=== PATIENT | male | born 1945 | race Caucasian/White ===

== ENCOUNTER 2017-01-15 09:54 | Outpatient (CLI) | payer MEDICARE, OTHER ==
[~2017-01-15] VITALS: Ht 177.8 cm; Wt 87.6 kg
--- NOTE | ~2017-01-15 | CATH ---
Cardiac Diagnostic Report Demographics Patient Name ANUPAMA Kerns Gender Male Date of 1945 Age 71 year(s) Patient Number [id number] Date of Study 01/15/2017 Visit Number [id number] Room Number G6[address] [place] [id number] Ht 177.8 cm Wt 87.6 kg Referring Aline Gar Primary Physician Physician Chele WYATT [facility]forming [facility] Secondary Physician Marily WYATT Physician [facility] Yerra Assisting [facility] Cal[facility]xto Physician Aldo Lynch MD Interventional [facility] Physician Marily WYATT Research Rn Spec Findings and Conclusions Diagnostic Findings and Conclusion Critial 1 vs disease, + stress echo with w/o wall motion abnormality in LAD territory at peak stress. LM 10% in mid portion, ostial LAD tubular 90% stenosis, proximal Cx 30%, slow flow in RCA without any significant stenosis, CHRISTIE I flow. Diagnostic Recommendations Interventional Consult recommended. PCI LAD recommended, given worsening ROBISON (anginal equivalent, severe ostial LAD lesion as well as + stress echocardiogram). Procedure Description The patient was brought to the diagnostic cardiac catheterization-EP laboratory in the fasting, non-sedated state. Informed consent was obtained in the written and verbal form after the risks and benefits were explained. The patient had no further questions and agreed to proceed. The planned puncture-incision site(s) were shaved and prepped with ChloraPrep and draped in the usual sterile manner. Conscious sedation, supplemental oxygen, and pain control medications were delivered by a registered nurse under physician guidance. Surface ECG rhythm, blood pressure measurement, and pulse oximetry were monitored throughout the procedure. Arterial access. The access site was infiltrated with lidocaine. The vessel was entered with the Seldinger technique. A sheath was advanced into the vessel and used for catheter placement. Selective left coronary angiography. A catheter was advanced into the left coronary vessel ostium under Fluoroscopic guidance. Contrast was injected by hand. Images were obtained in multiple projections. Selective right coronary angiography. A catheter was advanced into the right coronary vessel ostium under fluoroscopic guidance. Contrast was injected by hand. Images were obtained in multiple projections. Stent Placement: A guiding catheter was used to intubate the vessel. A 0.14 wire was used to cross the lesion. A Drug Eluting Stent was placed. Post placement angiograms were performed. Arterial artery hemostasis was achieved. The patient was transferred to a regular nursing floor via cart accompanied by a nurse. The patient left the laboratory in stable condition. Diagnostic Cath Status: Elective Procedure Procedure Type Diagnostic procedure:Angiography:, Coronary Angios Indications: Abnormal cardiolyte. The procedure was explained in detail to the patient. Risks, complications and alternative treatments were reviewed. Written consent was obtained. Medications Reviewed with Patient prior to Procedure. Angiographic Findings Dominance: Right Cardiac Arteries and Lesion Findings LMCA: Abnormal.10 % mid LAD: ostial LAD 90%, mid 30% Diag ostial 70 focal Lesion on Prox LAD: Ostial.90% stenosis 12 mm length reduced to 0%. Pre procedure CHRISTIE II flow was noted. The guidewire cross was successful.A poor run off was present.The lesion was diagnosed as a high risk lesion.Culprit lesion. Lesion on Mid LAD: Mid subsection.30% stenosis . Lesion on 1st Diag: Ostial.70% stenosis . LCx: Abnormal.prox 30% focal OM wnl Lesion on Prox CX: Proximal subsection.30% stenosis . RCA: Abnormal.CHRISTIE [address] w[address] Coronary Tree Procedure Data Procedure Date Date: 01/15/2017Start: 11:38 AMEnd: 12:55 PM Entry Locations - Retrograde Percutaneous access was performed through the Right Ulnar Artery (Primary location). A 6 Fr sheath was inserted. Hemostasis was successfully obtained using Mechanical Compression. Closure Comments: 19 cc air in R Band. Procedure Medications Order and Administration + + + + + !Time !Medication !Dosage !Route ! + + + + + !01/15/2017 11:34 !Versed !1 mg !I.V. ! !AM ! ! ! ! + + + + + !01/15/2017 11:34 !Fentanyl !50 mcg !I.V. ! !AM ! ! ! ! + + + + + !01/15/2017 11:41 !Versed !1 mg !I.V. ! !AM ! ! ! ! + + + + + !01/15/2017 11:43 !Oxygen !2 l/min !NC ! !AM ! ! ! ! + + + + + !01/15/2017 12:00 !Versed !1 mg !I.V. ! !PM ! ! ! ! + + + + + !01/15/2017 12:00 !Oxygen !4 l/min !NC ! !PM ! ! ! ! + + + + + !01/15/2017 12:02 !Heparin (ACC_3) !4000 units !I.V. bolus ! !PM ! ! ! ! + + + + + !01/15/2017 12:27 !Angiomax (Bivalirudin) !67.5 mg !I.V. bolus ! !PM !(ACC_5) ! ! ! + + + + + !01/15/2017 12:28 !Angiomax (Bivalirudin) !1.75 mg/kg/hr!I.V. bolus ! !PM !(ACC_5) ! ! ! + + + + + 01/15/2017 12:31 !Fentanyl !25 mcg !I.V. ! !PM ! ! ! ! + + + + + !01/15/2017 12:31 !Aggrastat (Tirofiban) !2300 mcg !I.V. bolus ! !PM ! ! ! ! + + + + + !01/15/2017 12:39 !Versed !1 mg !I.V. ! !PM ! ! ! ! + + + + + !01/15/2017 12:46 !Brilinta (Ticagrelor) !180 mg !P.O. ! !PM !(ACC_20) ! ! ! + + + + + Devices Used - A5 Fr. BS JR 4 Diag. Catheterwas used for:Right coronary angiography. - A5 Fr. BS JL 3.5 Diag. Catheterwas used for:Left coronary angiography. - A6 Fr. EBU 3.5 Guide Catheterwas used for:LAD Intervention. Contrast Material - Isovue [id number] ml Fluoroscopy Time: Diagnostic: 11:12 minutes. Total: 11:12 minutes. Fluoroscopy Dose: Diagnostic: 1736 mGy. Total: 1736 mGy. Estimated Blood Loss: 20 ml. Additional [facility] PCI Information PCI Indication:PCI for high risk Non-STEMI or unstable angina. Medical History Performed Procedures and Imaging Results - Stress echocardiogramwas performed. Results were: Positive. Risk/Extent of ischemia was: Intermediate risk. Allergies - Morphine. Risk Factors The patient risk factors include:physical activity, hypertension, last creatinine: 1.3 mg/dl, creatinine clearance: 66.45 ml/min and former tobacco use. Admission Data Admission Date: 01/15/2017 Admission Time: 09:54 AM Admit Source: Other Insurance Payors: Medicare. Admission Medications + +------+------+ + + + + !Medication !Dosage!Times !Last !Last !Administered !Comments ! ! ! !Per !Delivery !Delivery ! ! ! ! ! !Day !Date !Time ! ! ! + +------+------+ + + + + !Aspirin ! ! ! ! !Yes ! ! !(any) ! ! ! ! ! ! ! + +------+------+ + + + + !Beta ! ! ! ! !Yes ! ! !Salvatore ! ! ! ! ! ! ! !(any) ! ! ! ! ! ! ! + +------+------+ + + + + !Non-Statin ! ! ! ! !Yes ! ! !(any) ! ! ! ! ! ! ! + +------+------+ + + + + Clinical Evaluation Leading to Procedure - Anti-anginal medications were prescribed during the past two weeks. The medications are: Beta Blockers and Long Acting Nitrates. - The patient's CAD presentation was assessed as: Unstable angina. - The patient's anginal syndrome during the past two weeks was assessed as: Class III according to the [place] Cardiovascular Society Classification System (CCS). Anti-anginal medications were prescribed during the past two weeks. The medications are: Beta Blockers, Long Acting Nitrates and Other. - The patient has been in a state of heart failure within the past two weeks. - The patient shows CHF symptoms of ROBISON. Snapshots Hemodynamics Condition: Rest O2 Consumption: Estimated: 224.77Heart Rate: 52 bpm Pressures (mmHg) +-----+ + !Site !Pressure ! +-----+ + !AO !134/96 (105) ! +-----+ + Shunts Oxygen Values O2 Capacity 228.48 O2 Consumption 224.77 Signatures dtt: ALDO ACOSTA dtd: 01/15/17 1138 Physician Self Edit
--- NOTE | ~2017-01-15 | CATH ---
Cardiac Interventional Report Demographics Patient Name ANUPAMA Kerns Gender Male Date of 1945 Age 71 year(s) Patient Number [id number] Date of Study 01/15/2017 Visit Number [id number] Room Number G6[address] [place] [id number] Ht 177.8 cm Wt 87.6 kg Referring Aline Gar Primary Physician Physician Chele WYATT Performing Yerra Secondary Physician Aldo Physician Emerald Calixto MD Diagnostic Yerra Assisting Emerald Calixto Physician Aldo Lynch MD Interventional Emerald Physician Physician Marily WYATT Np Findings and Conclusions Interventional Findings and Conclusion s/p PCI ostial LAD with GEOFFREY Promus Premier, 4.0 x 12 at 14 nora Interventional Recommendations Continue regular medications. Patient will be observed overnight. Hydration and followup creatinine. Patient has been instructed to not lift anything more than 5 pounds for 1 week. I will plan on seeing the patient back in 2 week(s). Aggressive risk factor management. Aggressive medical therapy for coronary artery disease. ASA. Statin. Dual Anti-platelet therapy. Cardiac diet . Optimization of medical therapy as an outpatient. Referral to Cardiac Rehabilitation now and at discharge . I would like to thank Dr. Dr. Mireles for the opportunity to participate in the care of Mr. Tate . Procedure Description The patient was brought to the diagnostic cardiac catheterization-EP laboratory in the fasting, non-sedated state. Informed consent was obtained in the written and verbal form after the risks and benefits were explained. The patient had no further questions and agreed to proceed. The planned puncture-incision site(s) were shaved and prepped with ChloraPrep and draped in the usual sterile manner. Conscious sedation, supplemental oxygen, and pain control medications were delivered by a registered nurse under physician guidance. Surface ECG rhythm, blood pressure measurement, and pulse oximetry were monitored throughout the procedure. Arterial access. The access site was infiltrated with lidocaine. The vessel was entered with the Seldinger technique. A sheath was advanced into the vessel and used for catheter placement. Selective left coronary angiography. A catheter was advanced into the left coronary vessel ostium under Fluoroscopic guidance. Contrast was injected by hand. Images were obtained in multiple projections. Selective right coronary angiography. A catheter was advanced into the right coronary vessel ostium under fluoroscopic guidance. Contrast was injected by hand. Images were obtained in multiple projections. Stent Placement: A guiding catheter was used to intubate the vessel. A 0.14 wire was used to cross the lesion. A Drug Eluting Stent was placed. Post placement angiograms were performed. Arterial artery hemostasis was achieved. The patient was transferred to a regular nursing floor via cart accompanied by a nurse. The patient left the laboratory in stable condition. Interventional Cath Status: Urgent Procedure Procedure Type PCI procedure:Drug Eluting Coronary Stent:, LAD Indications: Abnormal cardiolyte. The procedure was explained in detail to the patient. Risks, complications and alternative treatments were reviewed. Written consent was obtained. Medications Reviewed with Patient prior to Procedure. Angiographic Findings Dominance: Right Cardiac Arteries and Lesion Findings LMCA: Abnormal.10 % mid LAD: ostial LAD 90%, mid 30% Diag ostial 70 focal Lesion on Prox LAD: Ostial.90% stenosis 12 mm length reduced to 0%. Pre procedure CHRISTIE II flow was noted. Post Procedure CHRISTIE III flow was present. The guidewire cross was successful.A poor run off was present.The lesion was diagnosed as a high risk lesion.Culprit lesion. Devices used - BMW Wire .014 x 190. Number of passes: 1. - Emerge Balloon 3.0 x 8. 1 inflation(s) to a max pressure of: 10 nora. - Promus Premier 4.0 x 12 Stent. 1 inflation(s) to a max pressure of: 14 nora. Lesion on Mid LAD: Mid subsection.30% stenosis . Lesion on 1st Diag: Ostial.70% stenosis . LCx: Abnormal.prox 30% focal OM wnl Lesion on Prox CX: Proximal subsection.30% stenosis . RCA: Abnormal.CHRISTIE [address] wnl Coronary Tree Procedure Data Procedure Date Date: 01/15/2017Start: 11:38 AMEnd: 12:55 PM Entry Locations - Retrograde Percutaneous access was performed through the Right Ulnar Artery (Primary location). A 6 Fr sheath was inserted. Hemostasis was successfully obtained using Mechanical Compression. Closure Comments: 19 cc air in R Band. Procedure Medications Order and Administration + + + + + !Time !Medication !Dosage !Route ! + + + + + !01/15/2017 11:34 !Versed !1 mg !I.V. ! !AM ! ! ! ! + + + + + !01/15/2017 11:34 !Fentanyl !50 mcg !I.V. ! !AM ! ! ! ! + + + + + !01/15/2017 11:41 !Versed !1 mg !I.V. ! !AM ! ! ! ! + + + + + !01/15/2017 11:43 !Oxygen !2 l/min !NC ! !AM ! ! ! ! + + + + + !01/15/2017 12:00 !Versed !1 mg !I.V. ! !PM ! ! ! ! + + + + + !01/15/2017 12:00 !Oxygen !4 l/min !NC ! !PM ! ! ! ! + + + + + !01/15/2017 12:02 !Heparin (ACC_3) !4000 units !I.V. bolus ! !PM ! ! ! ! + + + + + 01/15/2017 12:27 !Angiomax (Bivalirudin) !67.5 mg !I.V. bolus ! !PM !(ACC_5) ! ! ! + + + + + !01/15/2017 12:28 !Angiomax (Bivalirudin) !1.75 mg/kg/hr!I.V. bolus ! !PM !(ACC_5) ! ! ! + + + + + !01/15/2017 12:31 !Fentanyl !25 mcg !I.V. ! !PM ! ! ! ! + + + + + !01/15/2017 12:31 !Aggrastat (Tirofiban) !2300 mcg !I.V. bolus ! !PM ! ! ! ! + + + + + !01/15/2017 12:39 !Versed !1 mg !I.V. ! !PM ! ! ! ! + + + + + !01/15/2017 12:46 !Brilinta (Ticagrelor) !180 mg !P.O. ! !PM !(ACC_20) ! ! ! + + + + + Devices Used - A5 Fr. BS JR 4 Diag. Catheterwas used for:Right coronary angiography. - A5 Fr. BS JL 3.5 Diag. Catheterwas used for:Left coronary angiography. - A6 Fr. EBU 3.5 Guide Catheterwas used for:LAD Intervention. Contrast Material - Isovue [id number] ml Fluoroscopy Time: Diagnostic: 11:12 minutes. Total: 11:12 minutes. Fluoroscopy Dose: Diagnostic: 1736 mGy. Total: 1736 mGy. Estimated Blood Loss: 20 ml. Additional [facility] PCI Information PCI Indication:PCI for high risk Non-STEMI or unstable angina. Medical History Performed Procedures and Imaging Results - Stress echocardiogramwas performed. Results were: Positive. Risk/Extent of ischemia was: Intermediate risk. Allergies - Morphine. Risk Factors The patient risk factors include:physical activity, hypertension, last creatinine: 1.3 mg/dl, creatinine clearance: 66.45 ml/min and former tobacco use. Admission Data Admission Date: 01/15/2017 Admission Time: 09:54 AM Admit Source: Other Insurance Payors: Medicare. Admission Medications + +------+------+ + + + + !Medication !Dosage!Times !Last !Last !Administered !Comments ! ! ! !Per !Delivery !Delivery ! ! ! ! ! !Day !Date !Time ! ! ! + +------+------+ + + + + !Aspirin ! ! ! ! !Yes ! ! !(any) ! ! ! ! ! ! ! + +------+------+ + + + + !Beta ! ! ! ! !Yes ! ! !Salvatore ! ! ! ! ! ! ! !(any) ! ! ! ! ! ! ! + +------+------+ + + + + !Non-Statin ! ! ! ! !Yes ! ! !(any) ! ! ! ! ! ! ! + +------+------+ + + + + Clinical Evaluation Leading to Procedure - Anti-anginal medications were prescribed during the past two weeks. The medications are: Beta Blockers and Long Acting Nitrates. - The patient's CAD presentation was assessed as: Unstable angina. - The patient's anginal syndrome during the past two weeks was assessed as: Class III according to the [place] Cardiovascular Society Classification System (CCS). Anti-anginal medications were prescribed during the past two weeks. The medications are: Beta Blockers, Long Acting Nitrates and Other. - The patient has been in a state of heart failure within the past two weeks. - The patient shows CHF symptoms of ROBISON. Snapshots Hemodynamics Condition: Rest O2 Consumption: Estimated: 224.77Heart Rate: 52 bpm Pressures (mmHg) +-----+ + !Site !Pressure ! +-----+ + !AO !134/96 (105) ! +-----+ + Shunts Oxygen Values O2 Capacity 228.48 O2 Consumption 224.77 Signatures dtt: MARILY DIAZ dtd: 01/15/17 1138 Physician Self Edit
[~2017-01-15 09:54] MED LIST: ASPIRIN EC81 MG PO; COQ-10100 MG PO; FISH OIL CONCE1 EAC1 PO; FLONASE 50 MCG/16 GM NOSE; ISOSORBIDE MONO30 MG PO; LOPRESSOR25 MG PO; NITROSTAT0.4 MG SL; PRILOSEC20 MG PO; TIMOPTIC 0.5%15 ML OPHTH; VITAMIN B12 PO; VITAMIN C250 MG PO; VITAMIN D1000 UNIT PO
[2017-01-15 10:25] LABS: BASOPHIL # 0.1 K/uL (0.0-0.2); EOSINOPHIL # 0.4 K/uL (0.0-0.5); EOSINOPHIL % 6.8 %; HEMOGLOBIN 16.8 g/dL (11.0-16.0); IMMATURE GRANULOCYTE % 0.3 %; LYMPHOCYTE # 2.3 K/uL (0.8-4.0); LYMPHOCYTE % 35.8 %; MCH 31.3 pg (27.0-34.0); MCV 89.6 fl (83.0-98.0); MONOCYTE # 0.7 K/uL (0.0-1.0); MONOCYTE % 11.3 %; MPV 10.4 fl (9.4-12.4); NEUTROPHIL # (ANC) 2.8 K/uL (1.4-9.0); NEUTROPHIL % 44.8 %; NRBC % 0 /100WBC (0-0.00); PLATELET COUNT 182 K/uL (150-450); RBC 5.36 M/uL (3.50-5.50); RDW-CV 12.8 % (11.9-14.6); WBC 6.3 K/uL (4.0-11.0)
[2017-01-15 10:37] LABS: INR - (THERAPEUTIC) 1.07 (0.92-1.07); PROTIME 11.2 SECONDS (9.8-11.4); PTT 28 SECONDS (25-32)
[2017-01-15 10:44] LABS: ALBUMIN 3.6 gm/dL (3.5-5.0); ANION GAP 11.5 (10.0-19.0); CALCIUM 9.1 mg/dL (8.5-10.5); CREATININE 1.3 mg/dL (0.6-1.3); POTASSIUM 4.5 mMol/L (3.7-5.1); TOTAL BILIRUBIN 0.7 mg/dL (0.0-1.5); TOTAL PROTEIN 7.7 g/dL (6.0-8.4)
[2017-01-15 14:20] LABS: CPK 117 IU/L (35-332)
--- NOTE | 2017-01-15 19:34 | NUR ---
PATIENT HAD HEART CATH TODAY. RIGHT ULNAR SITE WNL. DR ACOSTA NOTIFIED OF PVC'S. NS AT 100ML/HR. AT BEDSIDE, BED ALARM ON D/T FORGETING TO CALL FOR ASSIST.
[2017-01-16 02:08] LABS: CPK 89 IU/L (35-332)
--- NOTE | 2017-01-16 04:49 | NUR ---
Significant Event: PT A/O X3 SBP 120-160 HR 55-90 SATS 94% RA. PT C/O RIGHT ARM PAIN, AND HAVING TROUBLE FALLING ASLEEP. PT REQUESTED TYLENOL AND BENADRYL AT HS. PT HAD GUOP 800ML COBAN AND BANDAID TO RIGHT ULNAR C/D/I. IV IN LT FOREARM SL. PT SBA. PT SHOULD GO HOME TODAY. Follow up: FOLLOW CARE PLAN.
[2017-01-16 07:50] LABS: CPK 138 IU/L (35-332)
[2017-01-16 07:55] LABS: ALBUMIN 3.3 gm/dL (3.5-5.0); CALCIUM 8.8 mg/dL (8.5-10.5); CREATININE 1.3 mg/dL (0.6-1.3); TOTAL BILIRUBIN 0.8 mg/dL (0.0-1.5); TOTAL PROTEIN 6.9 g/dL (6.0-8.4)
[2017-01-16] MEDS ORDERED: PROTONIX40 MG PO (13:23)
[2017-01-16] MEDS ORDERED: BRILINTA90 MG PO/SUBLING (13:26)
[2017-01-16] MEDS ORDERED: LIPITOR80 MG PO (13:52)
[2017-01-16] MEDS ORDERED: FISH OIL 1,0001 EACH PO (13:54)
--- NOTE | 2017-01-16 16:04 | NUR ---
D-DR NAQVI DC I-NURSE DID TEACHING ON ALL MEDS WITH RX GIVEN AND NEW ONES EXPLAINED, IV DCD INTACT, R)RADIAL COBAN INTACT SITE IS NORMAL PT TO REMOVE THIS BIN. TEACHING DONE ON WRIST AND CATH, CT NEG. DR DINH, PT AMB DAILY NO PROBLEMS, APPT SET UP, R-PT AND FINALLY STATE ALL UNDERSTANDING, SEEMED ALITTLE ANXIOUS AND CONFUSED ABOUT EVERYTHING. P-DARYA RUIZ TOOK PT PER WC TO CAR
== END 2017-01-16 13:50 | disposition disaster alternative care site (69) ==
LOC: GPOC 09:54 → GPCU 09:54 → GPOC 10:00 → GPCU 12:39 → GPOC 01-16 13:50
PROVIDERS: Internal Medicine Interventional Cardiology
PROC: 4A023N8 Measurement of Cardiac Sampling and Pressure, Bilateral, Percutaneous Approach (ICD-10-PCS; principal; 2017-01-15)
PROC: B214YZZ Fluoroscopy of Right Heart using Other Contrast (ICD-10-PCS; 2017-01-15)
DX: I25.10 Atherosclerotic heart disease of native coronary artery without angina pectoris (principal); R94.39 Abnormal result of other cardiovascular function study; G31.9 Degenerative disease of nervous system, unspecified; I49.3 Ventricular premature depolarization
CPT/HCPCS: C1725; C1769; C1874; C1887; C9600; J0583; J1644; J2001; J2250; J3010; J3246; J7030; J7060

== ENCOUNTER → 2017-01-23 | Outpatient (CLI) | payer MEDICARE, OTHER ==
[~2017-01-23] MED LIST changes: +BRILINTA90 MG PO/SUBLING; +FISH OIL 1,0001 EACH PO; +LIPITOR80 MG PO; +PROTONIX40 MG PO
--- NOTE | ~2017-01-23 | PUL ---
PATIENT'S NAME: MEAGHAN ALTMAN [facility] AGE: 71 Y [address] ROOM: [place] [address] LOCATION: [facility] ADMIT DATE: 01/23/2017 Pulmonary DISCHARGE DATE: FAMILY PHYSICIAN: Cong Mireles MD ATTENDING PHYSICIAN: KIM LAFLEUR NAME OF PROCEDURE: Pulmonary Function Test DATE OF PROCEDURE: January 23, 2017 TECH: GRABIEL Mcdaniel REASON FOR EXAM: Shortness of breath PROCEDURES PERFORMED: Spirometry with bronchodilator assessment. Measurement of maximum voluntary ventilation. Measurement of lung volumes. Measurement of diffusing capacity. RESULTS: Spirometry showed FVC was 3.11 L, 73% of predicted. FEV1 was 2.29 L, 73% of predicted. FEV1/FVC was 73%. There was significant improvement after administration of bronchodilator. The FEF 25-75 was 1.61 L/second, 67% of predicted. Maximum voluntary ventilation was 104 L/minute, 83% of predicted. Diffusing capacity not adjusted for hemoglobin was 86%. The single breath alveolar volume was 5.04 L which is a marginal estimate of the total lung capacity. The total lung capacity was 6 L, 96% of predicted. Residual volume is 2.44 liters, 99% of predicted. The FRC was 2.46 liters, 71% of predicted. The flow volume loop pattern was normal. PHYSICIAN INTERPRETATION: The above data and a corresponding flow volume curves shows normal pulmonary function with significant improvement after administration of bronchodilator, with normal lung volumes, and no gas transfer impairment. MD MOODY AC/beto /[id number] dtt: 01/30/17 1050 MIQUEL MEENAKSHI dtd: 01/27/17 1539
== END | disposition disaster alternative care site (69) ==
LOC: GRTH 01-21 11:00
DX: R51 Headache (principal)

== ENCOUNTER → 2017-01-23 | Outpatient (CLI) | payer MEDICARE, OTHER ==
[2017-01-23 13:06] LABS: ANION GAP 12.3 (10.0-19.0); CALCIUM 9.1 mg/dL (8.5-10.5); CREATININE 1.4 mg/dL (0.6-1.3)
[2017-01-23 13:19] LABS: POTASSIUM 4.3 mMol/L (3.7-5.1)
== END ==
LOC: LNHI 12:52
PROVIDERS: Internal Medicine Interventional Cardiology
DX: I10 Essential (primary) hypertension (principal)